=== PATIENT | female | born 1975 | race Caucasian/White ===

== ENCOUNTER 2020-07-15 09:10 | Emergency (ER) | payer SELFPAY ==
[~2020-07-15] VITALS: Ht 154.9 cm; Wt 86.2 kg
[2020-07-15 09:18] VITALS: BP 129/71
[2020-07-15] MEDS: BACITRACIN OINT 500 UNITS/GM PKT TP ONE (11:03)
[2020-07-15] MEDS: IBUPROFEN 400 MG TAB PO ONE (11:04)
[2020-07-15] MEDS ORDERED: NAPR-1704 PO (12:01)
[2020-07-15 12:06] VITALS: BP 130/80
== END 2020-07-15 12:06 | disposition home or self-care (01) ==
LOC: MED 09:10
DX: S00.83XA Contusion of other part of head, initial encounter (principal); S70.01XA Contusion of right hip, initial encounter; S00.03XA Contusion of scalp, initial encounter; Y04.0XXA Assault by unarmed brawl or fight, initial encounter; Y93.89 Activity, other specified; Y92.89 Other specified places as the place of occurrence of the external cause; Y99.8 Other external cause status
CPT/HCPCS: 70450; 70486; 73502; 99285